=== PATIENT | male | born 1950 | race Caucasian/White ===

== ENCOUNTER 2020-04-06 13:36 | Emergency (ER) | payer MEDICARE, BC, OTHER ==
[~2020-04-06] VITALS: Ht 170.2 cm; Wt 133.0 kg
[~2020-04-06 13:36] MED LIST: CHOL400T36 PO; MOXI3DRO18 RIGHTEYE; NEPA1.7D RIGHTEYE; PRED5DRO16 RIGHTEYE
[2020-04-06] MEDS: IOHEXOL 350 MG/ML 100 ML VIAL. IV ONE (14:30)
--- NOTE | 2020-04-06 14:36 | EKG ---
[address] [address] Test Date: 2020-04-06 Test Time: 14:23:20 Pat Name: AV PARNELL Department: Room: Gender: M Manager [employer]: : 1950 Requested By: DIMITRI CELESTIN Order Number: [id number] Reading MD: Measurements Intervals [place] Rate: 94 P: 47 [place]: 160 QRS: -26 QRSD: 88 T: 30 QT: 346 QTc: 438 Interpretive Statements SINUS RHYTHM LEFTWARD AXIS OTHERWISE NORMAL ECG RI6.02 No previous ECG available for comparison
[2020-04-06] MEDS ORDERED: IV NORMAL SALINE 250ML 250 ML ONE (14:37)
[2020-04-06] MEDS ORDERED: AZITHROMYCIN 500 MG VIAL. IV ONE (14:37)
[2020-04-06] MEDS ORDERED: IV NORMAL SALINE 50ML 50 ML ONE (14:37)
[2020-04-06] MEDS ORDERED: cefTRIAXone SODIUM 1 GM VIAL ONE (14:37)
[2020-04-06] MEDS: DEXAMETHASONE SOD PHOS 10 MG/ML VIAL. IV ONE (14:41)
[2020-04-06] MEDS: AZITHROMYCIN 500 MG in IV NORMAL SALINE 250ML 250 ML IV ONE (14:43)
[2020-04-06] MEDS ORDERED: IOHEXOL 350 MG/ML 100 ML VIAL. IV ONE (14:45)
--- NOTE | 2020-04-06 14:46 | PHYS DOC ---
Past History Past Medical History: Arthritis, DVT Additional Past Medical Histor: PE (ISHMAEL CRAFT APRN) Past Surgical History: No Surgical History (ISHMAEL CRAFT APRN) Smoking: Non-smoker Alcohol Use: Occasionally Drug Use: None (ISHMAEL CRAFT APRN) General Adult EDM: Chief Complaint: SHORTNESS OF BREATH HPI: HPI: Patient is a 70-year-old male who presents with positive Covid. Patient states that he went to [facility] last tested positive. Patient reports a cough, shortness of breath. Patient states he was used his pulse ox today at home and it was satting 88% so he decided to come into the emergency room. Patient denies fever. Denies chest pain. Nausea, vomiting, diarrhea. Patient was able to ambulate on his own into the emergency room. 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 (ISHMAEL CRAFT APRN) Review of Systems: Review of Systems: Constitutional: Denies fever or chills Eyes: Denies change in visual acuity HENT: Denies nasal congestion or sore throat Respiratory: Reports cough and shortness of breath Cardiovascular: Denies chest pain or edema GI: Denies abdominal pain, nausea, vomiting, bloody stools or diarrhea : Denies dysuria Musculoskeletal: Denies back pain or joint pain Integument: Denies rash Neurologic: Denies headache, focal weakness or sensory changes Endocrine: Denies polyuria or polydipsia Lymphatic: Denies swollen glands Psychiatric: Denies depression or anxiety (ISHMAEL CRAFT APRN) Current Medications: Current Meds: Current Medications Medications (Trade) Dose Ordered Sig/Kasey Start Time Stop Time Status Last Admin Dose Admin Azithromycin 500 mg/Sodium Chloride 250 ml @ 250 mls/hr 1X ONCE 04/06/20 15:00 04/06/20 15:59 Ceftriaxone Sodium 1 gm/ Sodium Chloride 50 ml @ 100 mls/hr 1X ONCE 04/06/20 14:30 04/06/20 14:59 Dexamethasone Sodium Phosphate (Decadron) 6 mg 1X ONCE 04/06/20 14:30 04/06/20 14:31 DC Iohexol (Omnipaque 350 Mg/ml) 100 ml 1X ONCE 04/06/20 14:30 04/06/20 14:31 DC (ISHMAEL CRAFT APRN) Allergies: Allergies: Allergies Coded Allergies Type Severity Reaction Last Updated Verified No Known Drug Allergies 01/19/14 No (ISHMAEL CRAFT APRN) Physical Exam: PE: Constitutional: Well developed, well nourished, no acute distress, non-toxic appearance. [] HENT: Normocephalic, atraumatic, bilateral external ears normal, oropharynx moist, no oral exudates, nose normal. [] Eyes: PERRLA, EOMI, conjunctiva normal, no discharge. [] Neck: Normal range of motion, no tenderness, supple, no stridor. [] Cardiovascular:Heart rate regular rhythm, no murmur [] Lungs & Thorax: Bilateral breath sounds clear to auscultation [] Abdomen: Bowel sounds normal, soft, no tenderness, no masses, no pulsatile masses. [] Skin: Warm, dry, no erythema, no rash. [] Back: No tenderness, no CVA tenderness. [] Extremities: No tenderness, no cyanosis, no clubbing, ROM intact, no edema. [] Neurologic: Alert and oriented X 3, normal motor function, normal sensory function, no focal deficits noted. [] Psychologic: Affect normal, judgement normal, mood normal. [] (ISHMAEL CRAFT APRN) PE: Physical exam: Constitutional patient has increased work of breathing with mild respiratory distress. Patient is able to speak in 6 or 7 word sentences. HEENT. Head normocephalic and atraumatic, pupils equal round and reactive to light, extraocular movements intact, no scleral icterus or erythema, mucous membranes moist CV: Palpable pulse with a nl rate and regular rhythm. Respiratory: Patient has crackles bilaterally without rales. Patient does not have wheezing. Increased respiratory rate. Normal expiratory phase. Abdomen: Soft nontender without rebound tenderness or guarding. Negative Lannon's point. Negative Velez sign. Nondistended. Skin: Normal color Psych: Makes eye contact, affect congruent with mood Neuro exam: Alert, speech is normal. Normal cranial nerves, no focal neurologic deficits. Smile symmetric. (DIMITRI CELESTIN MD) EKG: EKG: EKG sinus rhythm. Heart rate [address] Celestin at 1436.] (ISHMAEL CRAFT APRN) Radiology/Procedures: Radiology/Procedures: [] EXAM: CHEST 1 VIEW History: Shortness of breath COMPARISON: None available. TECHNIQUE: Single portable radiograph of the chest Findings/ impression: Low lung volumes and technique accentuates heart size and pulmonary vascularity. Mild scattered bilateral lung airspace opacities likely atelectasis or infiltrates or atypical or viral pneumonia. Electronically signed by: Heriberto Mackey MD (04/06/2020 3:15 PM) [id number] Examination: CT angiography chest with IV contrast HISTORY: History of covid positive, shortness of breath TECHNIQUE: Axial CT angiographic images with IV contrast. Coronal and sagittal 3-D MIP reformats. Exposure: One or more of the following individualized dose reduction techniques were utilized for this examination: 1. Automated exposure control 2. Adjustment of the mA and/or kV according to patient size 3. Use of iterative reconstruction technique FINDINGS: The visualized thyroid gland grossly appears unremarkable. Central airways are patent. Few enlarged mediastinal lymph nodes identified with the largest measuring 2.6 cm in the right paratracheal region. There is no evidence of filling defect identified in the main pulmonary arterial trunk and right and left main pulmonary arteries and the visualized lobar, segmental branches of the pulmonary arteries. Moderate right lower lobe, small left lower lobe consolidation changes with air bronchograms with patchy diffuse multiple airspace opacities identified in the periphery of the bilateral lungs. Diffuse decreased attenuation noted in the liver likely hepatic steatosis. The spleen, adrenals grossly appears unremarkable. Moderate degenerative changes thoracic spine. IMPRESSION: 1. No evidence of pulmonary embolism. 2. Moderate right lower lobe, small left lower lobe consolidation changes with air bronchograms with patchy diffuse multiple airspace opacities identified in the periphery of the bilateral lungs. Differential includes pneumonia or atypical, bilateral/covid pneumonia. Follow-up to resolution. 3. Few enlarged mediastinal lymph nodes identified with the largest measuring 2.6 cm in the right paratracheal region, probably reactive. 4. Hepatic steatosis. Electronically signed by: Heriberto Mackey MD (04/06/2020 3:53 PM) [id number] (ISHMAEL CRAFT APRN) Heart Score: HEART Score for Chest Pain: HEART Score for Chest Pain Response (Comments) Value History Slighlty/Non-Suspicious 0 ECG Normal 0 Age > 65 2 Risk Factors 1 or 2 Risk Factors 1 Troponin < Normal Limit 0 Total 3 Risk Factors: Risk Factors: DM, Current or recent (<one month) smoker, HTN, HLP, family history of CAD, obesity. Risk Scores: Score 0 - 3: 2.5% MACE over next 6 weeks - Discharge Home Score 4 - 6: 20.3% MACE over next 6 weeks - Admit for Clinical Observation Score 7 - 10: 72.7% MACE over next 6 weeks - Early Invasive Strategies (ISHMAEL CRAFT APRN) Course & Med Decision Making: Course & Med Decision Making Pertinent Labs and Imaging studies reviewed. (See chart for details) []Patient is a 70-year-old male who presents with positive Covid. Patient states that he went to [facility] last tested positive. Patient reports a cough, shortness of breath. Patient states he was used his pulse ox today at home and it was 88% room air, so he decided to come into the emergency room. Patient denies fever. Denies chest pain. Denies Nausea, vomiting, diarrhea. Patient was able to ambulate on his own into the emergency room. 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 EKG, labs, D-dimer ordered to rule out PE. Patient was hypoxic on arrival satting 79% on room air. Patient denies a history of wearing oxygen at home. Patient was placed on nonrebreather and satting 93%. Rocephin, azithromycin, dexamethasone started. Patient is undecided on where he wants to be admitted. Will consult admitting physician once patient decides where he wants transferred. Heart score of 3. EKG sinus rhythm, heart rate 94 bpm. Chest xray Mild scattered bilateral lung airspace opacities likely atelectasis or infiltrates or atypical or viral pneumonia. Patient placed on bipap. Patient admitted to [facility] and will be transferred out. Admitting Physician 1.Hypoxia 2.pneumonia due to Covid 19 2. Acute Respiratory failure (ISHMAEL CRAFT APRN) Course & Med Decision Making 70-year-old male came in hypoxic and with increased work of breathing placed on oxygen initially facemask at 10 L which was titrated down to 4 L nasal cannula. He had been given broad-spectrum antibiotics and IV steroids. We transfer the patient to [facility] for admission initially to the ICU but after he improved we downgraded him to a floor bed/stepdown unit. They had discussed the possibility of starting convalescent plasma and/or remdesivir in our emergency department. It was not feasible for us to be able to initiate convalescent plasma for the patient based on how long it would take to get it to the patient through our hospital system. I discussed with Dr. langston about remdesivir which we would be able to give in the emergency room. We would need his approval to give this medication according to hospital policy. We felt that the medication could be started in the hospital at the receiving facility. We did not feel that initiating it in the emergency department would change the patient's clinical outcome. (DIMITRI CELESTIN MD) Dragon Disclaimer: Dragon Disclaimer: This electronic medical record was generated, in whole or in part, using a voice recognition dictation system. (ISHMAEL CRAFT APRN) Departure Departure: Impression: Primary Impression: Hypoxia Additional Impressions: Pneumonia due to COVID-19 virus Acute respiratory failure Qualified Codes: J96.01 - Acute respiratory failure with hypoxia Disposition: 05 DC/TRF OTHER TYPE INSTITUTI Condition: STABLE Referrals: RENETTA GARCIA MD (PCP) Critical Care Time Critical care time spent was 35 minutes exclusive of procedures. Time was spent evaluating the patient, ordering the administration of medications, reevaluating the patient, discussing with the admitting provider and documenting. (DIMITRI CELESTIN MD) Critical Care Time Critical care time was [] minutes exclusive of procedures. (ISHMAEL CRAFT APRN) ISHMAEL CRAFT APRN Apr 06, 2020 14:46 DIMITRI CELESTIN MD Apr 06, 2020 17:04
[2020-04-06 14:55] LABS: BASO % 0 % (0-3); EOS % 0 % (0-3); HEMATOCRIT 43.1 % (39.0-53.0); HEMOGLOBIN 14.6 g/dL (13.0-17.5); LYMPH # 0.9 x10^3/uL (1.0-4.8); LYMPH % 14 % (24-48); MEAN CORPUSCULAR HEMOGLOBIN 28 pg (25-35); MEAN CORPUSCULAR HGB CONC 34 g/dL (31-37); MEAN CORPUSCULAR VOLUME 83 fL (79-100); MONO # 1.3 x10^3/uL (0.0-1.1); MONO % 21 % (0-9); NEUT # 4.2 x10^3uL (1.8-7.7); NEUT % 65 % (31-73); PLATELET COUNT 182 x10^3/uL (140-400); RED BLOOD COUNT 5.21 x10^6/uL (4.30-5.70); RED CELL DISTRIBUTION WIDTH 15.4 % (11.5-14.5); WHITE BLOOD COUNT 6.4 x10^3/uL (4.0-11.0)
[2020-04-06 15:06] LABS: CALCIUM 7.9 mg/dL (8.5-10.1); CREATININE 0.9 mg/dL (0.7-1.3); GFR 83.2; POTASSIUM 3.6 mmol/L (3.5-5.1)
--- NOTE | 2020-04-06 15:17 | RAD ---
EXAM: CHEST 1 VIEW History: Shortness of breath COMPARISON: None available. TECHNIQUE: Single portable radiograph of the chest Findings/ impression: Low lung volumes and technique accentuates heart size and pulmonary vascularity. Mild scattered bilat eral lung airspace opacities likely atelectasis or infiltrates or atypical or viral pneumonia. Electronically signed by: Heriberto Mackey MD (04/06/2020 3:15 PM) [id number]
[2020-04-06 15:18] LABS: ALBUMIN 2.8 g/dL (3.4-5.0); ALBUMIN/GLOBULIN RATIO 0.7 (1.0-1.7); C REACTIVE PROTEIN 187.7 mg/L (0-3.3); TOTAL BILIRUBIN 0.8 mg/dL (0.2-1.0); TOTAL PROTEIN 6.6 g/dL (6.4-8.2)
[2020-04-06] MEDS: ACETAMINOPHEN 325 MG TABLET PO ONE (15:55)
--- NOTE | 2020-04-06 15:55 | RAD ---
Examination: CT angiography chest with IV contrast HISTORY: History of covid positive, shortness of breath TECHNIQUE: Axial CT angiographic images with IV contrast. Coronal and sagittal 3-D MIP reformats. Exposure: One or more of the following individualized dose reduction techniques were utilized for thi s examination: 1. Automated exposure control 2. Adjustment of the mA and/or kV according to patient size 3. Use of iterative reconstruction technique FINDINGS: The visualized thyroid gland grossly appears unremarkable. Central airways are patent. Few enlarged m ediastinal lymph nodes identified with the largest measuring 2.6 cm in the right paratracheal region. There is no evidence of filling defect identified in the main pulmonary arterial trunk and right and left main pulmonary arteries and the visualized lobar, segmental branches of the pulmonary arteries. Moderate right lower lobe, small left lower lobe consolidation changes with air bronchograms with pat roseline diffuse multiple airspace opacities identified in the periphery of the bilateral lungs. Diffuse d ecreased attenuation noted in the liver likely hepatic steatosis. The spleen, adrenals grossly appear s unremarkable. Moderate degenerative changes thoracic spine. IMPRESSION: 1. No evidence of pulmonary embolism. 2. Moderate right lower lobe, small left lower lobe consolidation changes with air bronchograms with patchy diffuse multiple airspace opacities identified in the periphery of the bilateral lungs. Diffe rential includes pneumonia or atypical, bilateral/covid pneumonia. Follow-up to resolution. 3. Few enlarged mediastinal lymph nodes identified with the largest measuring 2.6 cm in the right pa ratracheal region, probably reactive. 4. Hepatic steatosis. Electronically signed by: Heriberto Mackey MD (04/06/2020 3:53 PM) [id number]
[2020-04-06 16:01] LABS: INFLUENZA A PATIENT NEGATIVE (NEGATIVE); INFLUENZA B PATIENT NEGATIVE (NEGATIVE)
[2020-04-06 16:35] VITALS: BP 136/63
[2020-04-06 16:52] LABS: BGAS PH 7.48 (7.35-7.46)
== END 2020-04-06 17:20 | disposition short-term general hospital (02) ==
LOC: ER 13:36
DX: U07.1 COVID-19 (principal); J12.82 Pneumonia due to coronavirus disease 2019; J96.01 Acute respiratory failure with hypoxia; M19.90 Unspecified osteoarthritis, unspecified site; Z79.01 Long term (current) use of anticoagulants; Z86.711 Personal history of pulmonary embolism; Z86.718 Personal history of other venous thrombosis and embolism
CPT/HCPCS: 36415; 36600; 71045; 71275; 80053; 82728; 82803; 83880; 84484; 85025; 85379; 86140; 87804; 93005; 96365; 96368; 96375; 99291; J0456; J0696; J1100; J7050; Q9967